=== PATIENT | female | born 1975 | race African-American/Black ===

== ENCOUNTER 2018-07-11 11:27 | Emergency (ER) | payer OTHER | END 2018-07-11 12:05 | disposition home or self-care (01) | LOC: NAV ERS 11:27 | DX: R21 Rash and other nonspecific skin eruption (principal) | CPT/HCPCS: 99282 ==

== ENCOUNTER 2019-09-26 12:19 | Emergency (ER) | payer OTHER ==
[2019-09-26] MEDS ORDERED: Lidocaine 1% w/Epinephrine 1:100K 30 ML VIAL ONE (12:38)
--- NOTE | 2019-09-26 12:57 | RAD ---
Exam: XR Hand Rt 3 View STANDARD HISTORY: Right hand pain and swelling which has increased. COMPARISON: None FINDINGS: No acute fracture, dislocation, or other acute osseous abnormality is identified. IMPRESSION: No acute osseous abnormality is identified.
[2019-09-26] MEDS ORDERED: Bacitracin 1 PK ONE (13:39)
[2019-09-26] MEDS ORDERED: Acetaminophen 325 MG TAB ONE (13:48)
[2019-09-26] MEDS ORDERED: Sulfameth/Trimethoprim DS 800-160mg TAB ONE (13:48)
== END 2019-09-26 13:52 | disposition home or self-care (01) ==
LOC: NAV ERS 12:19
DX: L02.511 Cutaneous abscess of right hand (principal)
CPT/HCPCS: 10060; 87070; 87077; 87186; 87205; J2001